=== PATIENT | male | born 1955 | race Two or more races ===

== ENCOUNTER 2017-05-07 11:23 | Day surgery (SDC) | payer BC ==
[~2017-05-07] VITALS: Ht 182.9 cm; Wt 85.3 kg
[~2017-05-07 11:23] MED LIST: ASPI-482 PO; BUPIVACAINE MPF 0.5% 30 ML VIAL. ONE; DEXAMETHASONE SOD PHOS 4 MG/ML VIAL ONE; HYDROmorphone 2 MG/ML VIAL IV PRN; IV RINGERS,LACTATED 1000ML 1,000 ML IV SCH; LIDOCAINE 1% 20 ML VIAL. ONE; LIDOCAINE 1% PF 2 ML VIAL. ID PRN; MORPHINE SULFATE 2 MG/ML DISP.SYRIN. IV PRN; OLME20TA19 PO; ONDA4TAB7 PO; ONDANSETRON PF 4 MG/2 ML VIAL. IV PRN; OXYC-323 PO; POVIDONE-IODINE 10% TOPICAL OINTMENT 28GM TUBE. TP ONE; PROCHLORPERAZINE 10 MG/2 ML VIAL. IV PRN; fentaNYL PF VIAL 100 MCG/2 ML VIAL IV PRN
[2017-05-07 12:29] LABS: BASO # 0.1 x10^3/uL (0.0-0.2); BASO % 1 % (0-3); EOS % 2 % (0-3); HEMOGLOBIN 13.7 g/dL (13.0-17.5); LYMPH % 26 % (24-48); MEAN CORPUSCULAR HEMOGLOBIN 32 pg (25-35); MEAN CORPUSCULAR HGB CONC 34 g/dL (31-37); MEAN CORPUSCULAR VOLUME 96 fL (79-100); MONO % 8 % (0-9); NEUT % 63 % (31-73); PLATELET COUNT 161 x10^3/uL (140-400); RED BLOOD COUNT 4.27 x10^6/uL (4.30-5.70); RED CELL DISTRIBUTION WIDTH 13.8 % (11.5-14.5); WHITE BLOOD COUNT 7.6 x10^3/uL (4.0-11.0)
[2017-05-07 12:47] LABS: CALCIUM 9.3 mg/dL (8.5-10.1); CREATININE 0.7 mg/dL (0.7-1.3); GFR 114.6; POTASSIUM 3.7 mmol/L (3.5-5.1)
[2017-05-07] MEDS ORDERED: FAMOTIDINE 20 MG/2 ML VIAL ONE (13:03)
[2017-05-07] MEDS ORDERED: ONDANSETRON PF 4 MG/2 ML VIAL. ONE (13:03)
[2017-05-07] MEDS ORDERED: DEXAMETHASONE SOD PHOS 20 MG/5 ML VIAL. ONE (13:03)
[2017-05-07] MEDS ORDERED: MIDAZOLAM HCL/PF 2 MG/2 ML VIAL. ONE (13:03)
[2017-05-07] MEDS ORDERED: PROPOFOL 20 ML IV ONE (13:03)
[2017-05-07] MEDS ORDERED: fentaNYL PF VIAL 100 MCG/2 ML VIAL ONE (13:03)
[2017-05-07] MEDS ORDERED: LIDOCAINE 2% PF Vial for OR 5 ML VIAL. ONE (13:03)
[2017-05-07] MEDS ORDERED: GLYCOPYRROLATE 1 MG/5 ML VIAL. ONE (13:46)
[2017-05-07] MEDS ORDERED: SEVOFLURANE > 120 MINUTES. IH ONE (15:17)
--- NOTE | 2017-05-07 15:41 | PDOC4 ---
OPERATIVE NOTE: Surgeon: Maryann Pre operative DX: Hammer toe 3rd toe right; 2nd, 3rd, 4th, 5th toe left Postoperative DX: Same Procedure: Flexor tenotomy with arthroplasty 3rd toe right, arthrodesis of 2nd, 3rd, 4th toe left and arthroplasty 5th toe left Anesthesia: LMA with local Hemostasis: Bilateral ankle tourniquet at 250mmHg EBL: 1mL Materials: 0.045 k-wire x 4 Pathology: bone/cartilage toes bilateral Intraoperative findings consistent with diagnosis Patient tolerated both anesthesia and procedure well. CHANG WALTER DPM May 07, 2017 15:41
[2017-05-07] MEDS ORDERED: HYDROcodone/APAP 5/325MG 1 TAB TABLET PO PRN (16:15)
--- NOTE | 2017-05-07 16:17 | RAD ---
Examination: 2 views of the bilateral feet History: History of arthrodesis right and left foot Comparison: None available Findings: K wire transfixing the interphalangeal joints of the third digit of the right foot and second, third, fourth digits of the left foot are identified. Soft tissue irregularity identified in the distal aspect of the third digit of the right foot could be secondary to injury. The evaluation of distal most aspect of the distal phalanx of the third digit of the right foot is limited. The alignment of the metatarsophalangeal joints, metastasis is grossly appears unremarkable Impression: 1. K wire transfixing the interphalangeal joints of the third digit right foot and second, third, fourth digits of the left foot identified. 2. Soft tissue irregularity identified in the distal aspect of the third digit of the right foot could be secondary to injury. The evaluation of distal most aspect of the distal phalanx of the third digit of the right foot is limited. Correlate clinically.
[2017-05-07] MEDS ORDERED: SODIUM BICARB ADULT 8.4% 50 MEQ/50 ML DISP.SYRIN. ONE (16:18)
[2017-05-07 16:25] VITALS: BP 146/77
--- NOTE | 2017-05-07 21:48 | OP ---
DATE OF SURGERY: 05/07/2017 PREOPERATIVE DIAGNOSIS: Hammertoe of the third toe on the right and hammertoe of the second toe, third toe, fourth toe, fifth toe of the left. POSTOPERATIVE DIAGNOSIS: Hammertoe of the third toe on the right and hammertoe of the second toe, third toe, fourth toe, fifth toe of the left. PROCEDURE: Flexor tenotomy with arthroplasty of the third toe, right; arthrodesis of second toe, third toe, fourth toe of the left foot and arthroplasty of the fifth toe, left. ANESTHESIA: MAC with local. SURGEON: Fran Wolf DPM HEMOSTASIS: Bilateral ankle tourniquet at 250 mmHg. INDICATIONS: The patient is a 62-year-old male with painful lesions to second, third and fourth toes to the left as well as third toe distal aspect of the right. The patient has tried conservative treatment of accommodative padding, extra depth shoe gear, taking NSAIDs, ice and has continued to develop a painful lesion and painful hammertoes. Thus, the patient would like to proceed with the above said procedure. Discussed possible benefits, risks and complications to include delayed healing, nonhealing, need for further surgery, numbness, tingling, loss of toe, foot, limb or life; overcorrection, under correction, floppy toe, flail toe, shortened toe, recurrence of lesions, deep venous thrombosis, pulmonary embolism. The patient understands and agrees with the above said procedure and a signed consent put in chart. DESCRIPTION OF PROCEDURE: The patient was transported to the operating room via a cart and placed on the operating table in supine position. The patient was given IV Ancef preoperatively. The Anesthesia administered LMA and administered local infiltrative digital blocks to the third toe on the right as well as the second, third, fourth and fifth toes on the left. The bilateral foot were then prepped and draped in the usual aseptic manner. Attention was directed to the left foot where an Esmarch bandage was used to exsanguinate the left foot and left ankle tourniquet was inflated to 250 mmHg. Attention was directed to the second toe where a linear incision was made over the proximal interphalangeal joint. This was deepened to level of the tendons small vessels were cauterized. A transverse incision was made to resect the extensor tendon and the medial and lateral collateral ligaments were then resected from the proximal interphalangeal joint, and a sagittal saw was used to resect the head of the proximal phalanx and the base of the middle phalanx. Next, a 0.045 K-wire was retrograded through the middle and distal phalanges and then forwarded through the proximal phalanx with care being taken not to disrupt the metatarsophalangeal joint. The wound was copiously irrigated with sterile saline. Satisfactory alignment of the second toe was noted and the 0.045 K-wire was cut and capped. The extensor tendon was then reapproximated with 3-0 Vicryl and the skin was reapproximated with 4-0 nylon. Next, the identical procedure was performed to the third toe and then to the fourth toe of the left foot. Satisfactory alignment was noted of all digits 2, 3 and 4, and C-arm fluoroscopy was utilized to verify the placement of the K-wire. Next, attention was directed to the fifth toe where two converging semielliptical incisions were made over the proximal interphalangeal joint. Next, a transverse incision was made to the extensor tendon and the medial and lateral ligaments were then resected. Next, a sagittal saw was used to resect the head of the fifth digit proximal phalanx. The wound was copiously irrigated with sterile saline and the extensor tendon was reapproximated with 3-0 Vicryl and the skin was reapproximated with 4-0 nylon. Betadine ointment was applied to all digits and to the K-wire sites of digits 2, 3 and 4. Applied Adaptic gauze, 4 x 4s, Kerlix and an Les bandage. The patient's tourniquet was deflated and good perfusion was noted to all digits of the left foot. Next, attention was directed to the right foot where an Esmarch bandage was used to exsanguinate the right foot and the right ankle tourniquet was inflated to 250 mmHg. Attention was directed to the third digit. At this point, a 1 cm incision was made at the plantar distal interphalangeal joint and resected the flexor tendon to perform flexor tenotomy. At this point noted that the deformity was continued up to proximal interphalangeal joint and thus an additional linear incision was made to the dorsal proximal interphalangeal joint. This was deepened to the level of the joint capsule and small vessels were cauterized. The extensor tendon was transected transversely and the medial and lateral collateral ligaments were resected. Next, a sagittal saw was used to resect the third digit proximal phalanx head and a temporary K-wire fixation was then put distal through the medial and distal phalanx and then retrograded through the proximal phalanx with care being taken not to disruption the MPJ. The wound was then copiously irrigated with sterile saline and the tendon was reapproximated with 3-0 Vicryl and the skin was reapproximated with 4-0 nylon. The wound was then dressed with Betadine ointment, Adaptic gauze, 4 x 4s, Kerlix and an Les bandage. Solid perfusion was noted to all digits upon roll back of the ankle tourniquet. The patient tolerated both anesthesia and procedure well, was transported to the PACU with vital signs stable. The patient is to have x-rays taken in the PACU and postop instructions are in the chart. FRAN WOLF DPM DR: Hui JOB#: [id number] / [id number]
--- NOTE | 2017-05-13 13:57 | PATHOLOGY ---
PATHOLOGY REPORT * * * * * * * * FINAL DIAGNOSIS: Right foot third toe, and left foot second, third, fourth and fifth toes, bilateral hammer toe correction: - Segments of bone with focally attached fibrous tissue and cartilage consistent with hammer toe deformities. - Hyperkeratosis of skin. (JPM:mml; 05/13/2017) REPORT ELECTRONICALLY SIGNED BY: Claude Casillas M.D. DATE/TIME: 05/13/2017 13:44 * * * * * * * * GROSS PATHOLOGY: The specimen is received in formalin, labeled "Prince Spear and bilateral cartilage", is an ellipse of hoskins-white skin 2.0 x 0.5 x 0.2 and multiple hoskins-white bone covered with a glistening articular cartilage ranging from 0.6 up to 1.2 cm in greatest dimension and measuring 2.0 x 1.8 x 0.6 cm in aggregate. The bone show a yellow grossly unremarkable trabeculated parenchyma. The specimen is submitted in two cassettes. A1 skin and A2 bone after decalcification (SWS; 05/11/2017) INITIAL CPT CODE(S): A; 70253, 87499 Professional services [place] [facility] [address] Technical services performed by [facility] at [address] [place] [address], [address], [place] [address]. SPECIMEN(S) RECEIVED: A.Bilateral cartilage, toes CLINICAL HISTORY: Bilateral hammertoes PATIENT: PRINCE SPEAR /AGE: 601/09/1955 (Age: 62) PATIENT #: [id number] ALT CASE #: SPECIMEN COLLECTION DATE: 05/07/2017 SPECIMEN RECEIVED DATE: 05/08/2017 [facility] - [id number] [place] [address] - PHONE: [phone] * * * END OF REPORT * * *
== END 2017-05-07 17:39 | disposition home or self-care (01) ==
LOC: SURG 11:23
PROVIDERS: ATTEND Podiatrist Foot & Ankle Surgery
DX: M20.42 Other hammer toe(s) (acquired), left foot (principal); M20.41 Other hammer toe(s) (acquired), right foot; I10 Essential (primary) hypertension; F17.200 Nicotine dependence, unspecified, uncomplicated; M19.91 Primary osteoarthritis, unspecified site; Z72.89 Other problems related to lifestyle; Z87.39 Personal history of other diseases of the musculoskeletal system and connective tissue; Z72.0 Tobacco use
CPT/HCPCS: 28285; 36415; 73620; 80048; 85025; C1769; J0690; J1100; J2250; J2405; J2704; J3010; J3490; J7120; S0028; 88304; 88311; J2001

== ENCOUNTER → 2017-05-28 | Outpatient (CLI) | payer BC ==
[2017-05-07 16:25] VITALS: BP 146/77
[~2017-05-28] MED LIST changes: -BUPIVACAINE MPF 0.5% 30 ML VIAL. ONE; -DEXAMETHASONE SOD PHOS 4 MG/ML VIAL ONE; -HYDROmorphone 2 MG/ML VIAL IV PRN; -IV RINGERS,LACTATED 1000ML 1,000 ML IV SCH; -LIDOCAINE 1% 20 ML VIAL. ONE; -LIDOCAINE 1% PF 2 ML VIAL. ID PRN; -MORPHINE SULFATE 2 MG/ML DISP.SYRIN. IV PRN; -ONDANSETRON PF 4 MG/2 ML VIAL. IV PRN; -POVIDONE-IODINE 10% TOPICAL OINTMENT 28GM TUBE. TP ONE; -PROCHLORPERAZINE 10 MG/2 ML VIAL. IV PRN; -fentaNYL PF VIAL 100 MCG/2 ML VIAL IV PRN
--- NOTE | 2017-05-28 08:28 | RAD ---
EXAM: Bilateral lower extremity venous Doppler. HISTORY: History of deep venous thrombosis, bilateral lower extremity pain. COMPARISON: None. FINDINGS: Grayscale and Doppler analysis of the both lower extremity deep venous systems was performed with graded compression and augmentation. The common femoral, greater saphenous, superficial femoral, popliteal and calf veins were assessed. There is no evidence of deep venous thrombosis. IMPRESSION: 1. No evidence of deep venous thrombosis.
== END | disposition home or self-care (01) ==
LOC: US 07:38
PROVIDERS: ATTEND Podiatrist Foot & Ankle Surgery
DX: I82.403 Acute embolism and thrombosis of unspecified deep veins of lower extremity, bilateral (principal); M20.41 Other hammer toe(s) (acquired), right foot; M20.42 Other hammer toe(s) (acquired), left foot; L84 Corns and callosities; Z86.718 Personal history of other venous thrombosis and embolism
CPT/HCPCS: 93970

== ENCOUNTER → 2021-07-25 | Outpatient (CLI) | payer BC, MEDICARE ==
[~2021-07-25] MED LIST changes: +OLME20TA17 PO; -OLME20TA19 PO; -OXYC-323 PO; +OXYC1TAB15 PO
[2021-07-25 08:44] LABS: CREATININE 0.7 mg/dL (0.7-1.3); GFR 113.2
[2021-07-25] MEDS: IOHEXOL 300 MG/ML 100ML VIAL. IV ONE (09:14)
--- NOTE | 2021-07-25 10:23 | RAD ---
Exam: CT abdomen/pelvis with and without intravenous contrast Indication: Hematuria Comparison: None Technique: Helical CT imaging performed of the abdomen and pelvis before and after the administration of 75 mL Omnipaque 300 intravenous contrast. Sagittal and coronal reformats were obtained. One or more of the following individualized dose reduction techniques were utilized for this examinat ion: 1. Automated exposure control 2. Adjustment of the mA and/or kV according to patient size 3. Use of iterative reconstruction technique. Findings: Inherently limited evaluation without intravenous contrast. Lower chest: There is a calcified granuloma in the left lower lobe. Lung bases are otherwise clear. Liver: The liver is normal in size. No focal liver lesions. Gallbladder/Biliary Tree: Normal. Pancreas: Normal. Spleen: Normal. Adrenal Glands: Mild left adrenal gland thickening. Kidneys/Ureters/Bladder: Kidneys are normal in size. No nephrolithiasis or hydronephrosis. Ureters ar e normal in course and caliber. Bladder is incompletely distended with contrast, limiting evaluation. No obvious bladder mass or focal wall thickening. Reproductive Organs: Prostate gland is unremarkable. Stomach, small bowel, and colon: Stomach is normal. There is no small bowel obstruction. Moderate sig moid diverticulosis without acute diverticulitis. Appendix is normal. Vasculature: Abdominal aorta is normal in caliber. Mild calcified aortoiliac atherosclerosis Lymph Nodes: No lymphadenopathy. Peritoneum and retroperitoneum: No free fluid or free air. Bones: The bones are diffusely demineralized. No acute fracture. There is dextroscoliosis of the thor acolumbar spine. Mild degenerative disc disease with degenerative endplate irregularities at multiple levels. IMPRESSION: 1. No urolithiasis or other acute abnormality of the kidneys, ureters, or bladder. 2. Sigmoid diverticulosis. 3. Osteopenia. Lumbar scoliosis and degenerative disc disease. Electronically signed by: Niyah Gomez MD (07/25/2021 10:21 AM) [facility]
== END ==
LOC: CT 08:07
PROVIDERS: ATTEND Family Medicine
DX: K57.30 Diverticulosis of large intestine without perforation or abscess without bleeding (principal); E27.8 Other specified disorders of adrenal gland; J84.10 Pulmonary fibrosis, unspecified; I70.0 Atherosclerosis of aorta; R31.9 Hematuria, unspecified; M41.85 Other forms of scoliosis, thoracolumbar region; M85.88 Other specified disorders of bone density and structure, other site; M51.36 Other intervertebral disc degeneration, lumbar region
CPT/HCPCS: 36415; 74178; 82565; Q9967